=== PATIENT | male | born 1965 | race Caucasian/White ===

== ENCOUNTER 2018-05-12 11:27 | Outpatient (CLI) | payer BC ==
--- NOTE | 2018-05-12 12:22 | Diagnostic Imaging Report ---
Indication: Cough Technique: 2 views of the chest Comparison: None Findings: Lungs and pleural spaces are clear. The heart size is normal. A calcified granuloma is seen in the left midlung periphery The bones are unremarkable. Impression: Evidence of old granulomatous disease. No acute process otherwise
== END 2018-05-12 13:27 | disposition home or self-care (01) ==
LOC: RAD 11:27
DX: Z01.818 Encounter for other preprocedural examination (principal); Z01.812 Encounter for preprocedural laboratory examination; R05 Cough
CPT/HCPCS: 71046